=== PATIENT | male | born 1985 | race Two or more races ===

== ENCOUNTER 2021-08-19 14:54 | Inpatient (IN) | payer SELFPAY ==
[~2021-08-19] VITALS: Ht 175.3 cm; Wt 78.9 kg
[~2021-08-19 14:54] MED LIST: DEXAMETHASONE SOD PHOS INJ 4 MG/ML SDV ONE; FENTANYL CITRATE/PF 100MCG/2 ML INJ ONE; GLYCOPYRROLATE INJ 0.2 MG/ML VIAL ONE; KETOROLAC TROMETHAMINE 30 MG/ML VIAL ONE; LIDOCAINE HCL 2% LOCAL INJ 5 ML SDV VIAL INJ ONE; MIDAZOLAM HCL 2 MG/2 ML VIAL ONE; NEOSTIGMINE 1 MG/ML 10ML VIAL ONE; ONDANSETRON HCL INJ 2MG/ML 2ML 2 MG/ML VIAL ONE; POVIDONE IODINE 0.05% 0.05 % ML PO ONE; PROPOFOL IV EMULSION 10 MG/ML 20 ML VIAL ONE; ROCURONIUM BROMIDE 10 MG/ML 5ML VIAL IV ONE; SEVOFLURANE INHAL SOLN 250 ML PEN BTL ONE
[2021-08-19] MEDS ORDERED: ONDANSETRON HCL INJ 2MG/ML 2ML 2 MG/ML VIAL IV ONE (15:15)
[2021-08-19] MEDS ORDERED: SODIUM CHLORIDE 0.9% 1000ML 1,000 ML IV STA (15:15)
[2021-08-19] MEDS ORDERED: FAMOTIDINE 20 MG/2 ML VIAL IV ONE ×2 (15:15→15:38)
[2021-08-19] MEDS ORDERED: ONDANSETRON HCL INJ 2MG/ML 2ML 2 MG/ML VIAL ONE (15:37)
[2021-08-19] MEDS ORDERED: SODIUM CHLORIDE 0.9% 1000ML 1,000 ML ONE (15:38)
[2021-08-19] MEDS ORDERED: KETOROLAC TROMETHAMINE 30 MG/ML VIAL IV ONE (15:45)
[2021-08-19] MEDS ORDERED: KETOROLAC TROMETHAMINE 30 MG/ML VIAL ONE (15:46)
[2021-08-19] MEDS ORDERED: LEVOFLOXACIN 500MG/D5W 100ML 100 ML IV SCH (16:30)
[2021-08-19] MEDS ORDERED: ONDANSETRON HCL 4 MG ORAL DISINTEGRATING TAB PO PRN (16:30)
[2021-08-19] MEDS ORDERED: PROMETHAZINE 25MG/ NS 50ML (IV) IV PRN (16:30)
[2021-08-19] MEDS ORDERED: DIPHENHYDRAMINE HCL INJ 50 MG/ML VIAL IV PRN (16:30)
[2021-08-19] MEDS ORDERED: IOPAMIDOL 370 MG/ML 100 ML INFUS..BTL INJ ONE (16:33)
[2021-08-19] MEDS: SODIUM CHLORIDE 0.9% 1000ML 1,000 ML IV SCH ×2 (17:00→18:47)
[2021-08-19 18:35] VITALS: BP 118/75
[2021-08-19] MEDS: Morphine 4mg INJECTION 4 MG/ML INJ IV PRN ×2 (18:47→22:31)
[2021-08-19] MEDS: METRONIDAZOLE 500MG/NS 100ML 100 ML IV SCH ×2 (18:47→23:37)
[2021-08-19 20:00] VITALS: BP 118/75
[2021-08-19 21:00] VITALS: BP 118/75
[2021-08-19] MEDS: FAMOTIDINE 20 MG/2 ML VIAL IV SCH (22:31)
[2021-08-20] VITALS (8 sets, daily range): BP systolic 94–109; BP diastolic 54–97
[2021-08-20] MEDS: SODIUM CHLORIDE 0.9% 1000ML 1,000 ML IV SCH ×2 (05:05→17:22)
[2021-08-20] MEDS: METRONIDAZOLE 500MG/NS 100ML 100 ML IV SCH ×4 (05:05→23:53)
[2021-08-20 06:42] LABS: BASOPHILS % 0.3 % (0.0-1.0); EOSINOPHILS % 0.1 % (0.0-6.0); HEMATOCRIT 38.3 % (38.2-49.6); HEMOGLOBIN 12.7 g/dL (14.0-18.0); LYMPHOCYTES # (AUTO) 0.4 (1.0-3.2); LYMPHOCYTES % 3.2 % (18.0-39.1); MEAN CORPUSCULAR HEMOGLOBIN 29.4 pg (28-32); MEAN CORPUSCULAR HGB CONC 33.2 g/dL (31-35); MEAN CORPUSCULAR VOLUME 88.7 fL (81-99); MONOCYTES # (AUTO) 0.3 (0.2-0.8); MONOCYTES % 1.9 % (4.4-11.3); NEUTROPHILS # (AUTO) 12.9 (2.1-6.9); PLATELET COUNT 239 x10e3/uL (140-360); RED BLOOD COUNT 4.32 x10e6/uL (4.3-5.7); RED CELL DISTRIBUTION WIDTH 12.4 % (11.7-14.4)
[2021-08-20] MEDS ORDERED: BUPIVACAINE HCL 0.25% 10ML MPF VIAL INJ ONE (07:06)
[2021-08-20 07:11] LABS: ANION GAP 14.9 mmol/L (8-16); CALCIUM 8.7 mg/dL (8.4-10.2); CREATININE, SERUM 1.17 mg/dL (0.72-1.25)
[2021-08-20 07:13] LABS: POTASSIUM 2.9 mmol/L (3.5-5.1)
[2021-08-20] MEDS ORDERED: SUGAMMADEX SODIUM 200 MG/2 ML VIAL IV ONE (08:26)
[2021-08-20] MEDS ORDERED: POTASSIUM CHLORIDE 20MEQ/100ML 300 ML IV ONE (09:15)
[2021-08-20] MEDS: FAMOTIDINE 20 MG/2 ML VIAL IV SCH ×2 (09:51→17:21)
[2021-08-20] MEDS: POTASSIUM CHLORIDE 20MEQ/100ML 100 ML IV SCH ×3 (09:51→14:00)
[2021-08-20] MEDS ORDERED: ONDANSETRON ODT4 MG PO (19:16)
[2021-08-20] MEDS ORDERED: METRONIDAZOLE500 MG PO (19:16)
[2021-08-20] MEDS ORDERED: LEVOFLOXACIN500 MG PO (19:16)
[2021-08-21] VITALS: BP 107/67
[2021-08-21] MEDS: SODIUM CHLORIDE 0.9% 1000ML 1,000 ML IV SCH ×2 (01:09→09:01)
[2021-08-21 04:00] VITALS: BP 117/71
[2021-08-21] MEDS: METRONIDAZOLE 500MG/NS 100ML 100 ML IV SCH (05:16)
[2021-08-21] MEDS: Morphine 4mg INJECTION 4 MG/ML INJ IV PRN (05:26)
[2021-08-21 06:50] LABS: ANION GAP 14.5 mmol/L (8-16); CALCIUM 8.2 mg/dL (8.4-10.2); CREATININE, SERUM 0.9 mg/dL (0.72-1.25); POTASSIUM 3.5 mmol/L (3.5-5.1)
[2021-08-21 08:18] VITALS: BP 119/68
[2021-08-21] MEDS: FAMOTIDINE 20 MG/2 ML VIAL IV SCH (09:02)
[2021-08-21 11:13] VITALS: BP 127/77
[2021-08-21] MEDS ORDERED: METRONIDAZOLE 500 MG TAB PO SCH (12:35)
[2021-08-21] MEDS ORDERED: HYDROCODONE/APAP 5MG-325MG TAB PO ONE (12:45)
[2021-08-21] MEDS ORDERED: FAMOTIDINE 20 MG TAB PO SCH (16:30)
== END 2021-08-21 13:26 | disposition home or self-care (01) | DRG 343 ==
LOC: FSED 15:15 → OBSVTOIN 16:27 → ERHOLD 16:27 → MED/SURG3 18:24
PROVIDERS: ADMIT Internal Medicine; ATTEND Internal Medicine
PROC: 0DTJ4ZZ Resection of Appendix, Percutaneous Endoscopic Approach (ICD-10-PCS; principal; 2021-08-20 07:43)
DX: K35.80 Unspecified acute appendicitis (principal); R16.1 Splenomegaly, not elsewhere classified; E87.6 Hypokalemia; F17.200 Nicotine dependence, unspecified, uncomplicated; Z20.822 Contact with and (suspected) exposure to COVID-19
CPT/HCPCS: 36415; 74177; 80048; 80053; 81003; 83735; 85025; 88304; 96374; 96375; 99284; J1100; J1885; J1956; J2001; J2250; J2270; J2405; J2710; J3010; J3480; J7030; Q9967